=== PATIENT | female | born 1965 | race Two or more races ===

== ENCOUNTER → 2025-06-19 | Outpatient (CLI) | payer MEDICAID, SELFPAY ==
--- NOTE | 2025-06-19 08:45 | XR_ITS ---
Examination: Ultrasound liver elastography Date and time: June 19, 2025 0830 hours INDICATIONS: Fatty liver diagnosis on CT examination May 15, 2024, diffuse fatty infiltration throughout the liver TECHNIQUE AND FINDINGS: Sonographic images liver including assessment tissues stiffness average Liver 12.9 cm Normal hepatopedal portal venous flow. Patent hepatic veins Tissues stiffness average 1.33 m/s which is in the normal to mild liver fibrosis range IMPRESSION: Normal to mild liver fibrosis
== END | disposition home or self-care (01) ==
PROVIDERS: PCP Physician Assistant Medical; Referring Provider Physician Assistant Medical; Visit Provider Physician Assistant Medical
DX: K74.00 Hepatic fibrosis, unspecified (principal)
CPT/HCPCS: 76981